=== PATIENT | female | born 1990 | race Caucasian/White ===

== ENCOUNTER 2017-03-17 11:00 | Inpatient (IN) | payer BC ==
--- NOTE | ~2017-03-17 | PN ---
Unit #: [id number] #: [id number] Patient: MARCOS ANDERSON [id number] [facility] [address] [place] [address] [id number] MR#: [id number] NAME: MARCOS ANDERSON ROOM: P257 Age: 26 Sex: F Admission Date: 03/17/2017 : 1990 Attending Physician: Trey Dejesus M.D. Admitting Physician: Trey Dejesus M.D. Primary Care Physician: Primary Care Physician Taylor ARMENTACE PROGRESS NOTES DATE 03/20/2017 DISCUSSION Ms. Anderson is a 26-year-old white female who was seen today and chart was reviewed and case was discussed with the staff. She has been anxious, withdrawn though has not shown any agitation, irritability and has been cooperative with treatment recommendations. She has been taking medications and tolerating them fairly well. She denies any suicidal or homicidal ideation and as such will maintain current medications and monitor her response and make further adjustments as needed. Dictated by... Lionel Pineda/jay TD: 03/20/2017 22:36 JOB #: [id number] [facility] PROGRESS NOTES Page 1 of 1 X Trey Dejesus MD PROGRESS NOTE
--- NOTE | ~2017-03-17 | PN ---
Unit #: [id number] #: [id number] Patient: MARCOS ANDERSON [id number] [facility] [address] [place] [address] [id number] I MR#: [id number] NAME: MARCOS ANDERSON ROOM: P257 Age: 26 Sex: F Admission Date: 03/17/2017 : 1990 Attending Physician: Trey Dejesus M.D. Admitting Physician: Trey Dejesus M.D. Primary Care Physician: Primary Care Physician Taylor LANGLEY PROGRESS NOTES DATE 03/18/2017 DISCUSSION Ms. Anderson is a 60-year-old white female who was seen today and chart was reviewed and case was discussed with the staff. She has been anxious, withdrawn, depressed and rather seclusive to herself. Meanwhile, she has been cooperative with treatment recommendations has been taking the medications and tolerating them fairly well with no reported side effects. MENTAL STATUS EXAMINATION Young white female who was casually dressed with fair personal hygiene, appears to be in no acute distress or discomfort. She was awake and alert with intact orientation. Her mood was anxious with congruent affect. She denies any suicidal or homicidal ideations. Her insight and judgement remains slightly impaired. TREATMENT PLAN 1. We will continue her on her current medications and treatment protocol. We will monitor her response to the medication and make further adjustments as needed. 2. We will continue to follow up. Dictated by... Lionel Pineda/joy TD: 03/20/2017 03:04 JOB #: [id number] Unit #: [id number] #: [id number] Patient: MARCOS ANDERSON PROGRESS NOTES Page 1 of 1 X Trey Dejesus MD PROGRESS NOTE
--- NOTE | ~2017-03-17 | PA ---
Unit #: [id number] #: [id number] Patient: MARCOS ANDERSON [id number] [facility] [address] [place] [address] [id number] MR#: [id number] NAME: MARCOS ANDERSON ROOM: P257 Age: 26 Sex: F Admission Date: 03/17/2017 : 1990 Date of Assessment: Attending Physician: Trey Dejesus M.D. Admitting Physician: Trey Dejesus M.D. Primary Care Physician: Primary Care Physician No PSYCHIATRIC ASSESSMENT IDENTIFYING DATA Ms. Anderson is a 26-year-old single white female, who is a resident of [place], [place], and is currently active under my care in the intensive outpatient treatment program, where she was actually just seen by me yesterday and was complaining of depression and started on Latuda, but she was brought to the hospital by police called by her . CHIEF COMPLAINT "I was feeling suicidal." HISTORY OF PRESENT ILLNESS Ms. Anderson is a 26-year-old white female with long history of chronic mental illness on the line of schizoaffective disorder, who is known to me for years and more recently has been active in the intensive outpatient treatment program which she just recently started and stated that she does not like Invega and that it has been not helping her, she has been on it for a long time and that she wants to switch to Latuda for her bipolar depression and as such, the medication was accommodated. She did mention that she has been having problems in her marriage and that she recently got and then she decided that she wants to Moravian sumeet, even though her is not Moravian; however, she has felt that her restorationism beliefs have been interfering with her life and "I have a coldness in my heart towards my and I have been praying that I will find love for him again, and today we had a disagreement, it made me feel bad about myself and felt like I did not deserve my , I felt like I wanted to . I started banging my head on the wall. He said mean things to me and I wanted to . I went upstairs to take his blood pressure medication and he took it away from me and I started banging my head on the wall again and he sat on me and called the police and sometimes I like I don't deserve to live." Police reportedly stated that officer was dispatched on a call from which had stated that she was smashing her head against the window and was saying that she wanted to and her also stated that she attempted to take an unknown pill and but he was able to take them from her. The patient even told police surgeon that she no longer wanted to live and that she was willing to be transferred to [facility] [place], to seek help. She was evaluated and as such, recommendation for inpatient level of care for safety and stabilization was made and the patient was stepped up to the inpatient unit. SUBSTANCE ABUSE HISTORY The patient denies any history of alcohol or drug abuse. Unit #: [id number] #: [id number] Patient: MARCOS ANDERSON PAST PSYCHIATRIC HISTORY The patient has a history of multiple inpatient psychiatric hospitalizations over the years and she has been to [facility] [place], [facility], and has done outpatient treatment program as well and has been diagnosed and treated for bipolar disorder and schizoaffective disorder and is currently on Latuda, which was just recently switched. PAST MEDICAL HISTORY No acute or chronic medical illness. ALLERGIES No known medication allergies. PERSONAL AND SOCIAL HISTORY A 26-year-old white female, who reports that she is recently and lives at home with her and has fairly decent social support system. MENTAL STATUS EXAMINATION Young white female, who was casually dressed with fair personal hygiene, appears to be in no acute distress or discomfort. She was awake and alert on interaction with intact orientation to time, place, and person. Her mood was anxious and depressed with a congruent affect. Her speech was slow and goal directed. She reports having suicidal ideations, but denies any homicidal ideations, and also denies any auditory or visual hallucinations. Her insight and judgment remain slightly impaired. DIAGNOSTIC IMPRESSION Psychiatric: Schizoaffective disorder, bipolar type, most recent episode depressed, recurrent, moderate, without psychotic features. Medical: None. Stressors: Moderate psychosocial stressors. TREATMENT PLAN 1. The patient has presented with history of mood disorders, and we will recommend inpatient hospitalization for safety and stabilization. We will start her back on her home medications. We will adjust the medications and monitor response. 2. Supportive therapy was provided to the patient. 3. Safe, structured, and nourishing environment will be provided. ESTIMATED LENGTH OF STAY 5 to 7 days. ABILITY TO HELP SELF Limited. WILLINGNESS TO HELP SELF The patient appears to be willing to help self. STRENGTHS 1. Communicative. 2. Cooperative. PROBLEM LIST 1. Chronic dysphoric symptoms. Unit #: [id number] #: [id number] Patient: MARCOS ANDERSON 2. Poor social support system. DISCHARGE CRITERIA This will be contingent upon the patient's ability to show resolution of her depression and anxiety, and her ability to stay safe to herself, particularly after discharge from the hospital. Dictated by... Trey Dejesus M.D. BRIAN/shawnee TD: 03/18/2017 12:42 JOB #: [id number] PSYCHIATRIC ASSESSMENT Page 1 of 1 X Trey Dejesus MD X PSYCHIATRIC ASSESSMENT
--- NOTE | ~2017-03-17 | PN ---
Unit #: [id number] #: [id number] Patient: MARCOS ANDERSON [id number] [facility] [address] [place] [address] [id number] I MR#: [id number] NAME: MARCOS ANDERSON ROOM: P257 Age: 26 Sex: F Admission Date: 03/17/2017 : 1990 Attending Physician: Trey Dejesus M.D. Admitting Physician: Trey Dejesus M.D. Primary Care Physician: Primary Care Physician Taylor [place]KL[place] NOTES DATE 03/19/2017 DISCUSSION Ms. Anderson is a 26-year-old white female who was seen today and chart was reviewed and case was discussed with the staff. She has been anxious, withdrawn and rather seclusive to herself. Meanwhile, she has been cooperative with treatment recommendations as she has been taking the medications and tolerating them fairly well with no reported side effects. MENTAL STATUS EXAMINATION Young white female who was casually dressed with fair personal hygiene, appears to be in no acute distress or discomfort. She was awake and alert with intact orientation. Her mood was anxious with congruent affect. She denies any suicidal or homicidal ideations. Her insight and judgement remains slightly impaired. TREATMENT PLAN 1. We will continue her on her current medications and treatment protocol. We will monitor her response to the medication and make further adjustments as needed. 2. We will continue to follow up. Dictated by... Lionel Pineda/joy TD: 03/20/2017 03:02 JOB #: [id number] Unit #: [id number] #: [id number] Patient: MARCOS ANDERSON PROGRESS NOTES Page 1 of 1 X Trey Dejesus MD PROGRESS NOTE
--- NOTE | ~2017-03-17 | PN ---
Unit #: [id number] #: [id number] Patient: MARCOS ANDERSON [id number] [facility] [address] [place] [address] [id number] MR#: [id number] NAME: MARCOS ANDERSON ROOM: P257 Age: 26 Sex: F Admission Date: 03/17/2017 : 1990 Attending Physician: Trey Dejesus M.D. Admitting Physician: Trey Dejesus M.D. Primary Care Physician: Primary Care Physician Taylor LANGLEY PROGRESS NOTES DATE OF SERVICE 03/21/2017 DISCUSSION Ms. Anderson is a 26-year-old white female with bipolar disorder who was seen today. Chart was reviewed and case was discussed with the staff. She remains anxious, withdrawn, depressed, and rather seclusive to herself. Meanwhile, she has been taking the medications and tolerating them fairly well with no reported side effects. MENTAL STATUS EXAMINATION Young white female who is casually dressed with fair personal hygiene, appears to be in no acute distress or discomfort. The patient was awake and alert on interaction with intact orientation. Her mood is anxious with congruent affect. She denies any suicidal or homicidal ideations. Her insight and judgment remain slightly impaired. TREATMENT PLAN 1. We will continue her on her current treatment protocol. We will monitor her response to the medications and make further adjustments as needed. 2. We will continue to follow up. Dictated by... Trey Dejesus M.D. IAA/bzg TD: 03/21/2017 14:23 JOB #: [id number] [facility] PROGRESS NOTES Page 1 of 1 X Trey Dejesus MD PROGRESS NOTE
--- NOTE | ~2017-03-17 | HP ---
Unit #: [id number] #: [id number] Patient: MARCOS ANDERSON [id number] [place] [address] [id number] MR#: [id number] NAME: MARCOS ANDERSON ROOM: P257 Age: 26 Sex: F Admission Date: 03/17/2017 : 1990 Attending Physician: Trey Dejesus M.D. Admitting Physician: Trey Dejesus M.D. Primary Care Physician: Primary Care Physician No HISTORY AND PHYSICAL HISTORY OF PRESENT ILLNESS The patient is a 26-year-old female admitted to [address] [place] [address] on 03/17/2017 for suicidal ideations. PAST MEDICAL HISTORY The patient denies. PAST SURGICAL HISTORY Oral surgery. SOCIAL HISTORY She is unemployed. She lives with her , denies alcohol, tobacco and drug use. FAMILY MEDICAL HISTORY Noncontributory. ALLERGIES No known drug allergies. CURRENT MEDICATIONS Latuda and Ortho-Cyclen. REVIEW OF SYSTEMS CONSTITUTIONAL: No fever or chills. HEENT: Denies any sore throat, ear pain or runny nose. CARDIOVASCULAR: Denies chest pain, irregular heart rhythm or palpitations. CHEST: Denies shortness of breath or cough. No hemoptysis. GASTROINTESTINAL: Denies nausea, vomiting, diarrhea or chronic constipation. ENDOCRINE: Denies history of increased thirst or urination. No recent significant weight loss or gain. GENITOURINARY: Denies dysuria, frequency, or hematuria. SKIN: Denies any rashes. HEMATOLOGIC: Denies history of increased bleeding or bruising. MUSCULOSKELETAL: Denies any hot, swollen joints. No generalized muscle pain. NEUROLOGIC: Denies problems with vision or speech. No frequent, severe headaches. No numbness, tingling or weakness in any extremities. Denies loss of bladder or bowel control. PHYSICAL EXAM GENERAL: She is awake, alert and oriented in no acute distress. Unit #: [id number] #: [id number] Patient: MARCOS ANDERSON VITAL SIGNS: Temperature 97.8, heart rate 89, respiration 16, blood pressure 111/78. HEIGHT: 5'8". WEIGHT: 190 pounds. SKIN: Warm and dry without rash or lesion. HEENT: Normocephalic. TMs not viewed. Oral and nasal passages clear. Conjunctivae clear. PERRLA. EOMs intact. NECK: Supple without lymphadenopathy or thyromegaly. HEART: Regular rate and rhythm without murmur. LUNGS: Clear. ABDOMEN: Soft, nontender. : Not done. EXTREMITIES: No evidence of cyanosis, clubbing or edema. Moves all without focal deficit. NEUROLOGICAL: Grossly within normal limits. Cranial Nerves: II: Visual ramirez are intact. III, IV AND : Extraocular movements are intact. Pupils are equal, round and reactive to light. V: Facial sensation is grossly normal. VII: Facial movements and expression are normal. VIII: Auditory acuity grossly intact. IX, X: Uvula is midline. Phonation is normal. XI: Patient shrugs shoulders and turns head normally. XII: Tongue protrudes in the midline. Sensory and Motor Function: Sensory and motor sensation is grossly normal. Motor: moves all extremities well. IMPRESSION Psychiatric admission. RECOMMENDATIONS Psychiatric per psychiatrist. MEDICAL: No contraindication to participate in facility activities. MEDICAL PROGNOSIS Good. MEDICAL CONDITION Stable. Dictated by... Saeed Kwon/joy TD: 03/18/2017 20:52 JOB #: [id number] Unit #: [id number] #: [id number] Patient: MARCOS ANDERSON HISTORY AND PHYSICAL Page 1 of 1 X INDIA FALCON APRN HISTORY AND PHYSICAL
--- NOTE | ~2017-03-17 | PN ---
Unit #: [id number] #: [id number] Patient: MARCOS ANDERSON [id number] [facility] [address] [place] [address] [id number] MR#: [id number] NAME: MARCOS ANDERSON ROOM: P257 Age: 26 Sex: F Admission Date: 03/17/2017 : 1990 Attending Physician: Trey Dejesus M.D. Admitting Physician: Trey Dejesus M.D. Primary Care Physician: Primary Care Physician Taylor LANGLEY PROGRESS NOTES DATE OF SERVICE 03/22/2017 DISCUSSION Ms. Anderson is a 26-year-old white female who was seen today. Chart was reviewed and case was discussed with staff. She has been anxious, withdrawn, and rather seclusive to herself. Meanwhile, she has been cooperative with the treatment recommendations and has been taking the medications and tolerating them fairly well with no reported side effects. MENTAL STATUS EXAMINATION Young white female who is casually dressed with fair personal hygiene, appears to be in no acute distress or discomfort. She was awake and alert on interaction with intact orientation. Her mood is anxious with a congruent affect. She denies any suicidal or homicidal ideations. Her insight and judgment remain slightly impaired. TREATMENT PLAN 1. We will continue her on her current treatment protocol. We will monitor her response and make further adjustments as needed. 2. We will continue to follow up. Dictated by... Trey Dejesus M.D. IAA/bzg TD: 03/22/2017 12:54 JOB #: [id number] [facility] PROGRESS NOTES Page 1 of 1 X Trey Dejesus MD PROGRESS NOTE
--- NOTE | ~2017-03-17 | DS ---
Unit #: [id number] #: [id number] Patient: MARCOS ANDERSON [id number] [facility] [address] [place] [address] [id number] MR#: [id number] NAME: MARCOS ANDERSON ROOM: P256 Age: 26 Sex: F Admission Date: 03/17/2017 : 1990 Discharge Date: 03/24/2017 Attending Physician: Trey Dejesus M.D. DISCHARGE SUMMARY IDENTIFYING DATA Ms. Anderson is a 26-year-old single white female, who is a resident of [place], [place], and is currently under my care in the intensive outpatient treatment program, where she was just seen by me yesterday and then was complaining of depression and was stepped up to the inpatient unit after police was called by her due to suicidal ideations. DISCHARGE DIAGNOSES Psychiatric: Schizoaffective disorder, bipolar type, most recent episode depressed, recurrent, moderate, without psychotic features. Medical: None. Stressors: Moderate psychosocial stressors. HISTORY OF PRESENT ILLNESS Ms. Anderson is a 26-year-old white female, who reports that she recently started seeing her new psychiatrist, Dr. Dante Laird and was referred to come to the intensive outpatient treatment program. She reports that she has been diagnosed with bipolar disorder, and has been currently going through some depressive symptoms and last week, she was banging her head on the wall and she wanted to get help before her symptoms escalate and that she has been suicidal, but has no plan and has no intent to kill herself. The patient also reports that she has not been stable on medication and her moravian is playing a role in her eduardo. She is known to me from previous encounter, and she reports that since she last was under my treatment, she has had significant changes in her life including the fact that she met a og and she got and then she got influenced by [employer] moravian and she decided to turn into [employer] moravian, a part of the moravian was not helping her to be affectionate towards her , so it started causing conflict with a new marriage and saying that she also feels the medications particularly Invega has not been helping her and has been dulling her mind. She also informed me that she got really scared that she is and she might end up getting and therefore she talked to her nurse practitioner and decided to come off all the medication as she stated that she was scared that if she ends up being , her baby will have defect even though she is currently on control pills, but she stated that she feels that she might end up getting and therefore she was not feeling comfortable with the current regimen of medication, and stopped taking all of her medication with the exception of Invega, but has been complaining Invega dulling her mind and not helping her to be normal self and not really helping her with bipolar depression. PAST PSYCHIATRIC HISTORY The patient has a history of multiple psychiatric treatments at different Unit #: [id number] #: [id number] Patient: MARCOS ANDERSON facilities over the years and has long history of schizoaffective bipolar type and is currently on Invega Sustenna. PAST MEDICAL HISTORY The patient's medical history is insignificant. HOSPITAL COURSE The patient was admitted to the adult psychiatric unit at [facility] and was oriented to the hospital environment. Routine p.r.n. medications were initiated, and she was started back on her home medications and medications were adjusted and Latuda was started back and BuSpar later had to be added due to persistent anxiety. She was taking the medications regularly and was tolerating them fairly well and was able to show a decent therapeutic response and as such, it was decided that she will be discharged home. We will continue with treatment on an outpatient basis. DISCHARGE MEDICATIONS Latuda 40 mg in the evening for psychosis and for bipolar and BuSpar 10 mg b.i.d. for anxiety. DISCHARGE CONDITION Stable. PROGNOSIS Fair. Dictated by... Lionel Pineda/shawnee TD: 03/26/2017 12:57 JOB #: [id number] DISCHARGE SUMMARY Page 1 of 1 X Trey Dejesus MD X DISCHARGE SUMMARY
--- NOTE | ~2017-03-17 | PN ---
Unit #: [id number] #: [id number] Patient: MARCOS ANDERSON [id number] [facility] [address] [place] [address] [id number] MR#: [id number] NAME: MARCOS ANDERSON ROOM: P256 Age: 26 Sex: F Admission Date: 03/17/2017 : 1990 Attending Physician: Trey Dejesus M.D. Admitting Physician: Trey Dejesus M.D. Primary Care Physician: Primary Care Physician Taylor LANGLEY PROGRESS NOTES DATE March 23, 2017 DISCUSSION Ms. Anderson is a 26-year-old white female, who was seen today and chart was reviewed and the case was discussed with the staff. The patient has been anxious, withdrawn, and rather seclusive to herself. Meanwhile, she has been cooperative with the treatment recommendations and she has been taking the medications and tolerating them fairly well with no reported side effects. MENTAL STATUS EXAMINATION Young white female, who was casually dressed with fair personal hygiene and appears to be in no acute distress or discomfort. She was awake and alert with intact orientation. Her mood was anxious with a congruent affect. The patient denies any suicidal or homicidal ideations. Her insight and judgment remain slightly impaired. TREATMENT PLAN 1. We will continue her on her current medications and treatment protocol, and will monitor her response to the medications, and make further adjustments as needed. 2. We will continue to followup. Dictated by... Lionel Pineda/annalise TD: 03/23/2017 12:11 JOB #: [id number] Unit #: [id number] #: [id number] Patient: MARCOS ANDERSON PROGRESS NOTES Page 1 of 1 X Trey Dejesus MD PROGRESS NOTE
[2017-03-19 12:24] LABS: BASOPHIL% 0.2 % (0-2.5); EOSINOPHIL# 0.1 X10e3 (0-0.7); EOSINOPHIL% 0.9 % (0.0-7.0); HEMATOCRIT 39.4 % (35.0-45.0); HEMOGLOBIN 13.1 gm/dL (12.0-16.0); LYMPHOCYTE# 1.3 X10e3 (1.0-3.5); LYMPHOCYTE% 20.2 % (17.0-45.0); MEAN CELL VOLUME 91.3 FL (83-96); MEAN CORPUSCULAR HEMOGLOBIN 30.4 PG (28-34); MEAN CORPUSCULAR HGB CONC 33.2 g/dL (30-36); MEAN PLATELET VOLUME 9.7 FL (6.5-11.5); MONOCYTE# 0.4 X10e3 (0-1.0); NEUTROPHIL# 4.8 X10e3 (1.5-7.1); NEUTROPHIL% 72.7 % (40-75); PLATELET COUNT 240 X10e3 (140-420); RED BLOOD COUNT 4.31 X10e (3.90-5.30); RED CELL DISTRIBUTION WIDTH 12.8 % (11.0-15.5); WHITE BLOOD COUNT 6.6 X10e3 (4.0-10.5)
[2017-03-19 12:31] LABS: DIFF IND NO
[2017-03-19 12:50] LABS: ALBUMIN SERUM 3.8 g/dL (3.5-5.0); BILIRUBIN,TOTAL 0.3 mg/dL (0.2-2.0); CALCIUM SERUM 9.5 mg/dL (8.4-10.2); CREATININE SERUM 0.6 mg/dL (0.6-1.4); GLOM FILT RATE Estimated 126.7 mL/min (>60); POTASSIUM 4.2 mmol/L (3.5-5.1); PROTEIN TOTAL SERUM 6.8 g/dL (6.0-8.3)
[2017-03-21 09:43] LABS: URINE APPEARANCE CLEAR; URINE BILIRUBIN NEG (NEG); URINE BLOOD NEG (NEG); URINE COLOR YELLOW; URINE GLUCOSE NEG (NEG); URINE KETONE NEG (NEG); URINE LEUKOCYTE ESTERASE TRACE (NEG); URINE NITRATE NEG (NEG); URINE PH 5.5 (5-8); URINE PROTEIN NEG (NEG); URINE SPECIFIC GRAVITY 1.016 (1.003-1.035); URINE UROBILINOGEN 0.2 MG/DL (NEG)
[2017-03-21 09:48] LABS: U HYALINE CASTS AUWI 0-2 /[LPF]; URINE BACTERIA AUWI 1+ (NEGATIVE); URINE SQUAMOUS EPITHELIAL CELL NONE SEEN /[HPF]
[2017-03-21 10:23] LABS: AMPHETAMINE NEG (NEG); BARBITURATES NEG (NEG); BENZODIAZEPINES NEG (NEG); COCAINE NEG (NEG); MARIJUANA NEG (NEG); OPIATES NEG (NEG); TRICYCLIC ANTIDEPRESSANTS NEG (NEG); U METHADONE NEG (NEG)
== END 2017-03-24 13:40 | disposition home or self-care (01) | DRG 885 ==
LOC: P2L 12:21
PROVIDERS: Psychiatry & Neurology Psychiatry
DX: F31.32 Bipolar disorder, current episode depressed, moderate (principal)
CPT/HCPCS: 80053; 80307; 81003; 84703; 85025